=== PATIENT | female | born 1945 | race Hispanic/Latino ===

== ENCOUNTER 2018-03-30 07:57 | Observation (INO) | payer OTHER ==
[2018-03-28 08:46] VITALS: BP 168/89
[2018-03-28 08:58] LABS: BASOPHILS % (AUTO) 0.6 % (0.0-5.0); EOSINOPHILS % (AUTO) 5.6 % (0.0-8.0); HEMATOCRIT 42.3 % (36-48); LYMPHOCYTES % (AUTO) 27.3 % (21.0-51.0); MEAN CORPUSCULAR HEMOGLOBIN 30.5 pg (27.0-33.0); MEAN CORPUSCULAR VOLUME 92.5 fL (79-99); MONOCYTES % (AUTO) 8.4 % (3.0-13.0); NEUTROPHILS % (AUTO) 58.1 % (40.0-77.0); PLATELET COUNT (AUTO) 199 K/uL (130-400); RED BLOOD CELL COUNT(AUTO) 4.58 MIL/uL (4.00-5.50); RED CELL DISTRIBUTION WIDTH 13.1 % (11.0-15.5)
[2018-03-28 09:15] LABS: CREATININE 1.4 mg/dL (0.5-1.5); INR 0.95 (0.85-1.15); PARTIAL THROMBOPLASTIN TIME 26.4 SEC (26.3-35.5); POTASSIUM 4.4 mmol/L (3.5-5.1)
--- NOTE | 2018-03-29 10:15 | NUR ---
ABNORMAL LABS PARKER MENDIETA NOTIFIED OF PT'S BUN 24, CREAT 1.4. NO FURTHER ORDERS GIVEN.
[2018-03-30] VITALS (12 sets, daily range): BP systolic 101–150; BP diastolic 51–74
[~2018-03-30] VITALS: Ht 157.5 cm; Wt 88.9 kg
[~2018-03-30 07:57] MED LIST: CHOL200013 PO; EDOX30TA PO; LEVO50TA11 PO; LOSA1TAB42 PO; SIMV40TA5 PO
[2018-03-30] MEDS ORDERED: SODIUM CHLORIDE 0.9% 1000ML 1,000 ML IV ONE (08:19)
[2018-03-30] MEDS ORDERED: BUPIVACAINE/PF 0.25% 30ML VIAL IJ ONE (08:42)
[2018-03-30] MEDS ORDERED: LIDOCAINE HCL 1% MDV 50ML VIAL ONE (08:42)
[2018-03-30] MEDS ORDERED: CEFAZOLIN SODIUM 1 GM VIAL ONE (08:42)
[2018-03-30] MEDS ORDERED: MEPERIDINE-PF 25 MG/ML SYG ONE (09:14)
[2018-03-30] MEDS ORDERED: MIDAZOLAM HCL 1 MG/ML 2ML VIAL ONE (09:14)
[2018-03-30] MEDS ORDERED: OCTYL 2-CYANOACRYLATE 1 EACH TP ONE ×2 (10:02→10:37)
[2018-03-30] MEDS ORDERED: ONDANSETRON HCL 4 MG/2 ML VIAL IV PRN (10:45)
[2018-03-30] MEDS ORDERED: PHARMACY COMMUNICATION MISC SCH (10:45)
[2018-03-30] MEDS ORDERED: ACETAMINOPHEN-CODEINE 300/30MG TAB PO PRN ×2 (10:45)
[2018-03-30] MEDS ORDERED: TOPROL 50 MG PO SCH (10:58)
--- NOTE | 2018-03-30 11:10 | NUR ---
RECEIVED FROM APPLIANCE SERVICER VIA BED ACCOMPANIED BY Jaqui MCKEON RN. PT. [id number], RESP.'S EVEN AND UNLABORED. DENIES ANY C/O SOB, DENIES ANY CURRENT PAIN. LEFT UPPER CHEST WITH PRESSURE DRSG IN PLACE, DRSG D/I; NO CREPITUS NOTED. LEFT ARM WITH SLING IN PLACE; INSTRUCTED PT. AND DAUGHTER AT BEDSIDE RE:LEFT ARM RESTRICTIONS/PRECAUTIONS, VERBALIZED MUTUAL UNDERSTANDING. INSTRUCTED ON STRICT BR PER MD ORDERS, VERBALIZED MUTUAL UNDERSTANDING. COMPLETE ASSESSMENT DONE. CALL LIGHT WITHIN REACH, VERBALIZED ABILITY TO USE. BED LOW, SIDE RAILS UP X3.
[2018-03-30] MEDS: METOPROLOL TARTRATE 50 MG TAB PO SCH ×2 (12:53→21:10)
--- NOTE | 2018-03-30 13:45 | NUR ---
CONT.'S ON BR W/O C/O. REPOSITIONED FOR COMFORT. CALL LIGHT WITHIN REACH. DAUGHTER AT BEDSIDE.
--- NOTE | 2018-03-30 16:50 | NUR ---
SITTING UP IN BED EATING DINNER W/O C/O; ASSISTED BY DAUGHTER AT BEDSIDE.
--- NOTE | 2018-03-30 17:15 | NUR ---
ALLOWED AND ASSISTED OOB TO RESTROOM. ARM SLING IN PLACE. DAUGHTER IN ROOM WITH PT.
--- NOTE | 2018-03-30 20:00 | NUR ---
PATIENT ALERT AND ORIENTATED. DENIES ANY COMPLAINTS OF PAIN OR DISCOMFORT. DRESSING TO LEFT UPPER SHOULDER CLEAN, DRY, AND INTACT. RADIAL PULSE STRONG, FINGERS WARM AND MOVEMENT AND SENSATION INTACT. SLING IN PLACE.
[2018-03-30] MEDS ORDERED: SIMVASTATIN 20 MG TABLET PO SCH (21:00)
[2018-03-30] MEDS ORDERED: CEFAZOLIN SODIUM 1 GM VIAL IVP SCH (23:55)
--- NOTE | 2018-03-31 00:05 | NUR ---
PATIENT CONTINUE TO DENY ANY COMPLAINTS OF PAIN OR DISCOMFORT AT PRESENT. DRESSING REMAINS CLEAN, DRY, AND INTACT. MOVEMENT, SENSSATION, AND PULSE INTACT TO LEFT ARM, HAND, AND FINGERS. SLING CONTINUE IN PLACE.
[2018-03-31 03:00] VITALS: BP 148/70
--- NOTE | 2018-03-31 05:27 | NUR ---
LEFT UPPER CHEST DRESSING INTACT. SENSATION, MOVEMENT, WARMTH AND PULSE INTACT TO LEFT ARM, HAND, AND FINGERS. PATIENT DENIES ANY COMPLAINTS OF PAIN OR DISCOMFORT AT PRESENT.
[2018-03-31] MEDS ORDERED: LEVOTHYROXINE 50 MCG TABLET PO SCH (07:30)
[2018-03-31 07:40] VITALS: BP 135/70
--- NOTE | 2018-03-31 07:40 | NUR ---
DR. Silverio OTTO IN ROOM ASSESSING PM SITE AND REMOVING DRSG. DR. Silverio OTTO SPEAKING WITH PT. AND DAUGHTER AT BEDSIDE RE:PLAN OF CARE.
[2018-03-31] MEDS ORDERED: LOSARTAN/HYDROCHLOROTHIAZIDE 50-12.5MG TABLET PO SCH (09:00)
[2018-03-31] MEDS ORDERED: ***HM***(Cholecalciferol (Vitamin D3) (Vitamin D3) 2,000 UNIT) PO SCH (09:00)
[2018-03-31] MEDS: METOPROLOL TARTRATE 50 MG TAB PO SCH (09:50)
[2018-03-31] MEDS ORDERED: DOXY100T2 PO (11:01)
[2018-03-31] MEDS ORDERED: LOSA1TAB37 PO (11:01)
[2018-03-31 11:35] VITALS: BP 132/68
--- NOTE | 2018-03-31 14:00 | NUR ---
HL REMOVED, CATHETER. EXTENSIVE DISCHARGE INSTRUCTIONS GIVEN TO PT. AND PT.'S DAUGHTER AT BEDSIDE, VERBALIZED MUTUAL UNDERSTANDING AND ALL QUESTIONS ANSWERED. PPM BOOKLET PROVIDED.
--- NOTE | 2018-03-31 14:10 | NUR ---
DISCHARGED HOME VIA W/C WITH BELONGINGS. ACCOMPANIED BY [place] BRUNO.
== END 2018-03-31 14:15 | disposition home or self-care (01) ==
LOC: DAH 07:57 → DAHIP 07:58 → 2AH 11:23
PROVIDERS: ADMIT Internal Medicine; ATTEND Internal Medicine
DX: I44.0 Atrioventricular block, first degree (principal); I48.0 Paroxysmal atrial fibrillation; I35.8 Other nonrheumatic aortic valve disorders; I10 Essential (primary) hypertension; E78.5 Hyperlipidemia, unspecified; E03.9 Hypothyroidism, unspecified; E11.9 Type 2 diabetes mellitus without complications; F15.90 Other stimulant use, unspecified, uncomplicated; E66.9 Obesity, unspecified; Z68.35 Body mass index [BMI] 35.0-35.9, adult; Z98.51 Tubal ligation status; Z79.899 Other long term (current) drug therapy; Z86.73 Personal history of transient ischemic attack (TIA), and cerebral infarction without residual deficits; Z82.49 Family history of ischemic heart disease and other diseases of the circulatory system
CPT/HCPCS: 33208; 36415; 71046; 80048; 85025; 85610; 85730; 93005; 96374; A4218; A4606; C1785; C1894; C1898 ×2; G0378 ×30; J0690 ×2; J2175; J2250; J3490 ×2; J7030; 99156; 99157

== ENCOUNTER → 2022-03-30 | Outpatient (CLI) | payer OTHER ==
[~2022-03-30] MED LIST changes: +DOXY100T2 PO; -EDOX30TA PO; +EDOX30TA2 PO; +LOSA1TAB37 PO; -LOSA1TAB42 PO; +SIMV-46 PO; -SIMV40TA5 PO
[2022-03-30 16:24] LABS: CREATININE 1.4 mg/dL (0.5-1.5); POTASSIUM 4.3 mmol/L (3.5-5.1)
== END | disposition home or self-care (01) ==
LOC: LAB 15:43
PROVIDERS: ATTEND Internal Medicine Cardiovascular Disease
DX: R94.31 Abnormal electrocardiogram [ECG] [EKG] (principal); I48.0 Paroxysmal atrial fibrillation
CPT/HCPCS: 36415; 80048

== ENCOUNTER → 2022-04-01 | Outpatient (CLI) | payer OTHER ==
[~2022-04-01] MED LIST changes: +IOHEXOL 350 MG/ML 100ML INFUS..BTL IV ONE; +METOPROLOL TARTRATE 1 MG/ML 5ML VIAL IV ONE
== END | disposition home or self-care (01) ==
LOC: RAH 11:27
PROVIDERS: ATTEND Internal Medicine Cardiovascular Disease
DX: I48.0 Paroxysmal atrial fibrillation (principal)
CPT/HCPCS: 75574; J3490; Q9967 ×2